=== PATIENT | female | born 1985 ===

== ENCOUNTER 2017-08-12 17:34 | Emergency (ER) | payer OTHER ==
[2017-08-12 17:41] VITALS: BMI 29.2
[2017-08-12 17:45] VITALS: BP 120/66; TEMP 99.2
[2017-08-12] MEDS ORDERED: Dextrose 5%/0.45% NS 1,000 ML IV STA (17:53)
[2017-08-12] MEDS ORDERED: Sodium Chloride 0.9% 1,000 ML IV STA (17:53)
--- NOTE | 2017-08-12 17:58 | ED PDOC ---
Arrival/HPI - General Chief Complaint: Abdominal Pain Time Seen by Provider: 08/12/17 17:52 Historian: Patient - History of Present Illness Narrative History of Present Illness (Text): 08/12/17 17:54 A 32 year old female, whose past medical history includes asthma, presents to the emergency department complaining of body aches for 3 days. Patient also notes experiencing nausea and vomiting beginning today, as well as mild abdominal cramping. LMP 07/23. Patient denies any diarrhea, chest pain, shortness of breath, cough, any upper respiratory symptoms, or any other complaints. Past Medical History - Provider Review Nursing Documentation Reviewed: Yes - Infectious Disease Hx of Infectious Diseases: None - Cardiac Hx Hypertension: No - Pulmonary Hx Respiratory Disorders: Yes Hx Asthma: Yes - Neurological Hx Dementia: No - HEENT Hx Epistaxis: No - Renal Hx Renal Cancer: No - Endocrine/Metabolic Hx Diabetes Mellitus Type 1: No - Hematological/Oncological Hx Blood Disorders: Yes Hx Anemia: Yes Hx Blood Transfusions: No - Integumentary Hx Basal Cell Carcinoma: No - Musculoskeletal/Rheumatological Hx Gout: No - Gastrointestinal Hx Clostridium Difficile: No - Genitourinary/Gynecological Hx Bladder Stone: No - Psychiatric Hx Post Traumatic Stress Disorder: No Hx Substance Use: No - Surgical History Other/Comment: fibroid removed from breast - Anesthesia Hx Anesthesia: Yes Hx Anesthesia Reactions: No Family/Social History - Physician Review Nursing Documentation Reviewed: Yes Family/Social History: No Known Family HX Smoking Status: Never Smoked Hx Alcohol Use: Yes Frequency of alcohol use: Socially Hx Substance Use: No Allergies/Home Meds Allergies/Adverse Reactions: Allergies seafood Allergy (Uncoded 08/12/17 17:40) ANGIOEDEMA Review of Systems - Physician Review All systems were reviewed & negative as marked: Yes - Review of Systems Respiratory: absent: SOB, Cough, Sputum, Wheezing Cardiovascular: absent: Chest Pain Gastrointestinal: Abdominal Pain (mild abdominal cramping). absent: Diarrhea Musculoskeletal: Other (body aches) Physical Exam Vital Signs Reviewed: Yes Vital Signs Temp Pulse Resp BP Pulse Ox 08/12/17 17:43 99.2 F 99 H 18 120/66 99 Temperature: Afebrile Blood Pressure: Normal Pulse: Regular Respiratory Rate: Normal Appearance: Positive for: Well-Appearing Pain Distress: None Mental Status: Positive for: Alert and Oriented X 3 - Systems Exam Head: Present: Atraumatic, Normocephalic Pupils: Present: PERRL Extroacular Muscles: Present: EOMI Conjunctiva: Present: Normal Mouth: Present: Moist Mucous Membranes Neck: Present: Normal Range of Motion Respiratory/Chest: Present: Clear to Auscultation, Good Air Exchange. No: Respiratory Distress, Accessory Muscle Use Cardiovascular: Present: Regular Rate and Rhythm, Normal S1, S2. No: Murmurs Abdomen: Present: Normal Bowel Sounds. No: Tenderness, Distention, Peritoneal Signs Back: Present: Normal Inspection Upper Extremity: Present: Normal Inspection. No: Cyanosis, Edema Lower Extremity: Present: Normal Inspection. No: Edema Neurological: Present: GCS=15, CN II-XII Intact, Speech Normal Skin: Present: Warm, Dry, Normal Color. No: Rashes Psychiatric: Present: Alert, Oriented x 3, Normal Insight, Normal Concentration Medical Decision Making ED Course and Treatment: 08/12/17 18:02 Impression: 32 year old female with body aches. No acute findings in physical exam. Vitals are unremarkable. Plan: -- Labs -- Urinalysis -- Rapid Flu test -- Tylenol -- Dextrose -- Pepcid -- Toradol -- Zofran -- IV Fluids -- Reassess and disposition Progress Notes: 08/12/17 19:57 Blood work is unremarkable. Urine shows ketones but no infection. Patient given meds and IVF and feeling much better and tolerating po - etiology is likely viral ok for d/c. - Lab Interpretations Lab Results: 08/12/17 18:21 08/12/17 18:21 Lab Results 08/12/17 18:56: Urine Color Yellow, Urine Appearance Sl cloudy, Urine pH 7.5, Ur Specific [place] 1.020, Urine Protein 30 H, Urine Glucose (UA) Negative, Urine Ketones >=80, Urine Blood Negative, Urine Nitrate Negative, Urine Bilirubin Negative, Urine Urobilinogen 2.0 H, Ur Leukocyte Esterase Negative, Urine RBC Negative, Urine WBC 0 - 2, Ur Epithelial Cells 3 - 4, Urine Bacteria Trace 08/12/17 18:21: Beta HCG, Quant < 2.39 08/12/17 18:21: Sodium 139, Potassium 3.1 L, Chloride 101, Carbon Dioxide 24, Anion Gap 17, BUN 9, Creatinine 0.7, Est GFR ( Amer) > 60, Est GFR (Non- Af Amer) > 60, Random Glucose 92, Calcium 9.3, Total Bilirubin 0.7, AST 26, ALT 22, Alkaline Phosphatase 71, Total Protein 8.0, Albumin 4.5, Globulin 3.5, Albumin/Globulin Ratio 1.3, Lipase 40 08/12/17 18:21: Influenza Typ A,B (EIA) Negative for flu a/b 08/12/17 18:21: WBC 7.0, RBC 4.42, Hgb 12.1, Hct 36.4, MCV 82.4, MCH 27.4, MCHC 33.2, RDW 15.5 H, Plt Count 194, MPV 10.6, Gran % 80.5 H, Lymph % (Auto) 9.9 L, [place] % (Auto) 9.2 H, Eos % (Auto) 0.3 L, Baso % (Auto) 0.1, Gran # 5.62, Lymph # 0.7 L, [place] # 0.6, Eos # 0.0, Baso # 0.01 I have reviewed the lab results: Yes - Medication Orders Current Medication Orders: Discontinued Medications Acetaminophen (Tylenol 325mg Tab) 975 mg PO STAT STA Stop: 08/12/17 17:54 Last Admin: 08/12/17 18:10 Dose: 975 mg MAR Pain/Vitals Document 08/12/17 18:10 GMD (Rec: 08/12/17 18:11 GMD [id number]) Pain Reassessment Is This A Pain ReAssessment? No Sleep Is patient sleeping during reassessment? No Presence of Pain Presence of Pain Yes Famotidine (Pepcid) 20 mg IVP STAT STA Stop: 08/12/17 17:55 Last Admin: 08/12/17 18:11 Dose: 20 mg IVP Administration Document 08/12/17 18:11 GMD (Rec: 08/12/17 18:11 GMD [id number]) Charges for Administration # of IVP Administrations 1 Dextrose/Sodium Chloride (Dextrose 5%/0.45% Ns 1000 Ml) 1,000 mls @ 999 mls/hr IV .Q1H1M STA Stop: 08/12/17 18:53 Last Admin: 08/12/17 18:52 Dose: 999 mls/hr eMAR Start Stop Document 08/12/17 18:52 GMD (Rec: 08/12/17 18:52 GMD [id number]) Intravenous Solution Start Date 08/12/17 Start Time 18:52 End Date 08/12/17 End time 19:53 Total Infusion Time 61 Sodium Chloride (Sodium Chloride 0.9%) 1,000 mls @ 999 mls/hr IV .Q1H1M STA Stop: 08/12/17 18:53 Last Admin: 08/12/17 18:11 Dose: 999 mls/hr eMAR Start Stop Document 08/12/17 18:11 GMD (Rec: 08/12/17 18:11 GMD [id number]) Intravenous Solution Start Date 08/12/17 Start Time 18:11 End Date 08/12/17 End time 19:12 Total Infusion Time 61 Ketorolac Tromethamine (Toradol) 30 mg IVP STAT STA Stop: 08/12/17 17:54 Last Admin: 08/12/17 18:53 Dose: 30 mg MAR Pain Assessment Document 08/12/17 18:53 GMD (Rec: 08/12/17 18:53 GMD [id number]) Pain Reassessment Is this a pain reassessment? No Sleep Is patient sleeping during reassessment? No Presence of Pain Presence of Pain Yes IVP Administration Document 08/12/17 18:53 GMD (Rec: 08/12/17 18:53 GMD [id number]) Charges for Administration # of IVP Administrations 1 Ondansetron HCl (Zofran Inj) 4 mg IVP STAT STA Stop: 08/12/17 17:55 Last Admin: 08/12/17 18:53 Dose: 4 mg IVP Administration Document 08/12/17 18:53 GMD (Rec: 08/12/17 18:53 GMD [facility] [id number]) Charges for Administration # of IVP Administrations 1 Potassium Chloride (K-Dur 20 Meq Er Tab) 40 meq PO STAT STA Stop: 08/12/17 18:47 Last Admin: 08/12/17 19:04 Dose: 40 meq - Scribe Statement The provider has reviewed the documentation as recorded by the Sera Jansen Provider Scribe Attestation: All medical record entries made by the Loganibsujata were at my direction and personally dictated by me. I have reviewed the chart and agree that the record accurately reflects my personal performance of the history, physical exam, medical decision making, and the department course for this patient. I have also personally directed, reviewed, and agree with the discharge instructions and disposition. Disposition/Present on Arrival - Present on Arrival Any Indicators Present on Arrival: No History of DVT/PE: No History of Uncontrolled Diabetes: No Urinary Catheter: No History of Decub. Ulcer: No History Surgical Site Infection Following: None - Disposition Have Diagnosis and Disposition been Completed?: Yes Diagnosis: Vomiting, Viral syndrome Disposition: HOME/ ROUTINE Disposition Time: 20:10 Patient Plan: Discharge Condition: GOOD Discharge Instructions (ExitCare): Acute Nausea and Vomiting (ED), Viral Syndrome (ED) Additional Instructions: Drink plenty of fluids. Advance diet slowly as tolerated. Zofran as needed for nausea/vomiting. Follow up with your primary care doctor. Return to the emergency department if any new concerning symptoms. Prescriptions: Ondansetron ODT [Zofran ODT] 1 tab PO Q8H PRN #9 odt PRN Reason: Nausea/Vomiting Referrals: [facility] [Outside] - Follow up with primary Forms: [facility] ([place]an), WORK NOTE
[2017-08-12 18:25] LABS: BASO # 0.01 K/mm3 (0.0-2.0); BASO % 0.1 % (0.0-3.0); EOS % 0.3 % (1.5-5.0); GRAN # 5.62 (1.4-6.5); GRAN % 80.5 % (50.0-68.0); HEMATOCRIT 36.4 % (36.0-48.0); LYMPH # 0.7 (1.2-3.4); LYMPH % 9.9 % (22.0-35.0); MEAN CELL VOLUME 82.4 fl (80.0-105.0); MEAN CORPUSCULAR HEMOGLOBIN 27.4 pg (25.0-35.0); MEAN CORPUSCULAR HGB CONC 33.2 g/dl (31.0-37.0); MEAN PLATELET VOLUME 10.6 fl (7.0-11.0); MONO # 0.6 (0.1-0.6); MONO % 9.2 % (1.0-6.0); RED CELL DISTRIBUTION WIDTH 15.5 % (11.5-14.5)
[2017-08-12 18:35] LABS: ALB/GLOB RATIO 1.3 (1.1-1.8); ALKALINE PHOSPHATASE 71 U/L (38-126); ALT/SGPT 22 U/L (7-56); AST/SGOT 26 U/L (14-36); BILIRUBIN,TOTAL 0.7 mg/dL (0.2-1.3); BLOOD UREA NITROGEN 9 mg/dL (7-21); CALCIUM 9.3 mg/dL (8.4-10.5); CARBON DIOXIDE 24 mmol/L (21-33); CHLORIDE 101 mmol/L (98-107); GFR AFRICAN-AMERICAN > 60; GLUCOSE,RANDOM 92 mg/dL (70-110); LIPASE 40 U/L (23-300); POTASSIUM 3.1 mmol/L (3.6-5.0); SODIUM 139 mmol/L (132-148)
[2017-08-12] MEDS ORDERED: Potassium Chloride 20 mEq ER Tab PO STA (18:46)
[2017-08-12 19:38] LABS: PH,URINE 7.5 (4.7-8.0); URINE BILIRUBIN NEGATIVE (NEGATIVE); URINE BLOOD NEGATIVE (NEGATIVE); URINE GLUCOSE (UA) NEGATIVE (NEGATIVE); URINE KETONE >=80 mg/dL (NEGATIVE); URINE LEUKOCYTE ESTERASE NEGATIVE Leu/uL (NEGATIVE); URINE PROTEIN 30 mg/dL (<30 mg/dL)
[2017-08-12 19:40] LABS: URINE APPEARANCE SL CLOUDY (CLEAR); URINE COLOR YELLOW (YELLOW)
[2017-08-12 19:46] LABS: URINE BACTERIA TRACE (NEG); URINE RBC NEGATIVE /hpf (0-2); URINE WBC 0 - 2 /hpf (0-6)
[2017-08-12 20:47] VITALS: PULSE 82; RESP 98; O2SAT 16
== END 2017-08-12 20:46 | disposition home or self-care (01) ==
LOC: ED 17:34
DX: R11.10 Vomiting, unspecified (principal); B34.9 Viral infection, unspecified
CPT/HCPCS: 80053; 81001; 83690; 84702; 85025; 87804; 96361; 96374; 96375; 99284; J1885; J2405; J7040; J7042